=== PATIENT | female | born 1970 | race Hispanic/Latino ===

== ENCOUNTER 2024-08-09 03:24 | Inpatient (IN) | payer OTHER ==
[2024-08-09 04:13] LABS: Hematocrit 40.2 % (36.0-47.0); Hemoglobin 12.6 g/dL (12.0-16.0); Mean Corpuscular HGB CONC 31.3 g/dL (32.0-36.0); Mean Corpuscular Volume 79.9 fL (78.0-98.0); Mean Platelet Volume 9.9 fL (7.4-10.4); Platelet Count 201 10x3/uL (130-400); RBC Distribution Width 14.7 % (11.5-14.5); Red Blood Cell (RBC) Count 5.03 mill/uL (4.20-5.40)
[2024-08-09 04:39] LABS: ALT (SGPT) 42 U/L (8-55); AST (SGOT) 36 U/L (5-34); Albumin 2.5 g/dL (3.5-5.0); Alkaline Phosphatase 91 U/L (40-110); Anion Gap 20 mmol/L (10-20); BUN (Urea Nitrogen) 30 mg/dL (9.8-20.1); Bilirubin, Total 1.3 mg/dL (0.2-1.2); Calc. Creatinine Clearance 0 mL/min (70-130); Calcium 10.1 mg/dL (7.8-10.44); Carbon Dioxide 14 mmol/L (22-29); Chloride 102 mmol/L (98-107); Estimated GFR 16; Globulin 3.8 g/dL (2.4-3.5); Glucose 115 mg/dL (70-105); Potassium 3.7 mmol/L (3.5-5.1); Protein, Total 6.3 g/dL (6.0-8.3); Sodium 132 mmol/L (136-145)
[2024-08-09 04:49] LABS: Troponin I Less than 0.010 ng/mL (< 0.028)
[2024-08-09 04:51] LABS: Band 38 % (5-11); Burr Cells MODERATE= 6-15 cells HPF (0-1); Eosinophils 1 % (0-10); Large Platelets 0.9 % (0-5); Lymphocytes 2 % (21-51); Metamyelocyte 1 % (0-0); Monocytes 5 % (0-10); Neutrophil 53 % (42-75); Platelet Adequacy Comment Platelets Normal; Smudge Cells 4.7 %
[2024-08-09] MEDS ORDERED: Acetaminophen 500 MG TAB ONE (04:54)
[2024-08-09] MEDS ORDERED: Vancomycin (BATCH) 2 GM/500 ML BAG ONE (05:00)
[2024-08-09] MEDS ORDERED: Sodium Chloride 0.9% 100 ML ONE (05:00)
[2024-08-09] MEDS ORDERED: Cefepime 2 GM VIAL ONE (05:00)
[2024-08-09 06:28] LABS: Bacteria/HPF 4+ HPF (None Seen); Bilirubin Negative (Negative); Blood, Urine 1+ (Negative); CAUTI Indications for Culture Pelvic or flank pain; Clarity Extra Turbid (Clear); Glucose, Urine (Dipstick) 50 mg/dL (Negative); Ketone, Urine Trace mg/dL (Negative); Leukocyte 500 Leu/uL (Negative); Nitrite Negative (Negative); Protein, Urine (Dipstick) 100 mg/dL (Neg-Trace); Specific Gravity, Urine 1.025 (1.002-1.036); WBC/HPF Greater than 50 HPF (0-3)
[2024-08-09 06:29] LABS: Urine Culture Reflex Yes Yes
[2024-08-09] MEDS ORDERED: Sodium Bicarb 50 MEQ/50 ML Abboject 8.4% SYRINGE ONE (06:49)
[2024-08-09] MEDS ORDERED: Ipratropium/Albuterol 3 ML NEB ONE (06:49)
[2024-08-09 07:15] LABS: Actual Bicarbonate (HCO3a) 16.7 mEq/L (22-28); Analyzer IN Cardio ER; Base Excess (BEa) -10.5 mEq/L (-2.0 to +3.0); Calcium, Ionized (arterial) 1.31 mmol/L (1.12-1.30); Carboxyhemoglobin (COHb) 0.5 gm% (0.0-3.0); Hematocrit-ABG 40 % (36.0-47.0); Hemoglobin (Hb) 13.7 g/dL (12.0-16.0); O2 Tension (PaO2), arterial 72.9 mmHg (80.0-100.0); Potassium - ABG Lab 3.81 mmol/L (3.70-5.30); pH, Arterial 7.218 (7.35-7.45)
[2024-08-09 07:28] LABS: Puncture Site Right Radial artery
[2024-08-09] MEDS ORDERED: Ondansetron PF 4 MG/2 ML Vial IVP PRN (07:39)
[2024-08-09 08:06] LABS: Acetaminophen Less than 10 mcg/mL (Less than 10); Alcohol Less than 10.0 mg/dL (Less than 10); Salicylate Less than 8.0 mg/dL (Less than 8.0)
[2024-08-09 08:22] LABS: Amphetamine Not Detected (NotDetected); Barbiturates Screen Not Detected (NotDetected); Benzodiazepine Screen Not Detected (NotDetected); Cocaine Metabolite Screen Not Detected (NotDetected); Methadone Not Detected (NotDetected); Methamphetamine Not Detected (NotDetected); Opiate Screen Not Detected (NotDetected); Oxycodone Screen Not Detected (NotDetected); Phencyclidine (PCP) Not Detected (NotDetected); THC/Cannabinoid Screen Not Detected (NotDetected); Tricyclic Screen Not Detected (NotDetected)
[2024-08-09] MEDS ORDERED: Vancomycin Dose by Levels Sliding Scale (Wt > 99) FS SCH (09:15)
[2024-08-09] MEDS: Lactated Ringer's 1,000 ML IV SCH (10:09)
[2024-08-09] MEDS: Potassium Chloride 20 MEQ in Lactated Ringer's 1,000 ML IV SCH (10:09)
[2024-08-09] MEDS ORDERED: Heparin 5,000 UNITS/ML VIAL ONE (10:11)
[2024-08-09] MEDS: Heparin 5,000 UNITS/ML VIAL SC SCH (10:12)
[2024-08-09 10:31] LABS: Lactic Acid 8.18 mmol/L (0.5-2.2)
[2024-08-09] MEDS ORDERED: Iopamidol 370 76% 100 ML VIAL ONE (12:42)
[2024-08-09] MEDS: Acetaminophen 325 MG TAB PO PRN (13:00)
[2024-08-09] MEDS ORDERED: Acetaminophen 325 MG TAB ONE (13:40)
[2024-08-09 15:07] LABS: Anion Gap 20 mmol/L (10-20); BUN (Urea Nitrogen) 34 mg/dL (9.8-20.1); Calc. Creatinine Clearance 37 mL/min (70-130); Calcium 9.6 mg/dL (7.8-10.44); Carbon Dioxide 15 mmol/L (22-29); Chloride 107 mmol/L (98-107); Estimated GFR 15; Glucose 78 mg/dL (70-105); Potassium 4.4 mmol/L (3.5-5.1); Sodium 138 mmol/L (136-145)
[2024-08-09] MEDS: Albumin 25% 25 GM (100 mL) BOT IVPB SCH (16:35)
[2024-08-09] MEDS: Sodium Bicarbonate 150 MEQ in Dextrose 5% in Water 1,000 ML IV SCH (16:39)
[2024-08-09] MEDS: NOREPINEPHRINE 8 MG/250 ML-D5W 250 ML IVPB SCH (16:44)
[2024-08-09] MEDS: Sodium Bicarb 50 MEQ/50 ML Abboject 8.4% SYRINGE IVP SCH (17:10)
[2024-08-09 17:50] LABS: CK (CPK) 887 U/L (29-168); Lipase 9 U/L (8-78)
[2024-08-09] MEDS: Vasopressin In 0.9 % NaCl 40 UNIT in Premix 1 BAG IV SCH (18:15)
[2024-08-09] MEDS: Ipratropium/Albuterol 3 ML NEB NEB PRN (18:29)
[2024-08-09] MEDS: Sodium Bicarb 50 MEQ/50 ML Abboject 8.4% SYRINGE ONE (18:33)
[2024-08-09] MEDS: FLU (Fluarix Triv) TS24-25(6MOS UP)/PF 45 MCG/0.5 ML Syringe IM ONE (18:33)
[2024-08-09] MEDS: Sodium Chloride 0.9% 1,000 ML IV SCH ×2 (18:52→23:03)
[2024-08-09] MEDS: Hydrocortisone Sod Succ/PF 100 mg/2 ml Vial IVP SCH (18:54)
[2024-08-09 19:50] LABS: Creatinine, Urine 158.01 mg/dL (47-110)
[2024-08-09] MEDS: fentaNYL 50 mcg/mL 1 mL Vial SLOW IVP SCH (21:44)
[2024-08-09] MEDS: Melatonin 3 MG TAB PO SCH (21:46)
[2024-08-09] MEDS: Morphine 2 MG/ML VIAL SLOW IVP SCH (23:07)
[2024-08-09 23:46] LABS: ALT (SGPT) 39 U/L (8-55); AST (SGOT) 65 U/L (5-34); Albumin 2.9 g/dL (3.5-5.0); Alkaline Phosphatase 60 U/L (40-110); Anion Gap 28 mmol/L (10-20); BUN (Urea Nitrogen) 39 mg/dL (9.8-20.1); Bilirubin, Total 1.7 mg/dL (0.2-1.2); Calc. Creatinine Clearance 35 mL/min (70-130); Carbon Dioxide 11 mmol/L (22-29); Chloride 105 mmol/L (98-107); Estimated GFR 15; Globulin 3.1 g/dL (2.4-3.5); Glucose 158 mg/dL (70-105); Potassium 4.1 mmol/L (3.5-5.1); Sodium 140 mmol/L (136-145)
[2024-08-10] MEDS: Sodium Bicarbonate 150 MEQ in Dextrose 5% in Water 1,000 ML IV SCH (00:08)
[2024-08-10] MEDS: Hydrocortisone Sod Succ/PF 100 mg/2 ml Vial IVP SCH (01:33)
[2024-08-10 04:30] LABS: Hematocrit 36.1 % (36.0-47.0); Hemoglobin 11.1 g/dL (12.0-16.0); Mean Corpuscular HGB CONC 30.7 g/dL (32.0-36.0); Mean Corpuscular Hemoglobin 24.2 pg (27.0-31.0); Mean Corpuscular Volume 78.8 fL (78.0-98.0); Platelet Count 181 10x3/uL (130-400); RBC Distribution Width 15.4 % (11.5-14.5); Red Blood Cell (RBC) Count 4.58 mill/uL (4.20-5.40)
[2024-08-10 04:46] LABS: ALT (SGPT) 47 U/L (8-55); AST (SGOT) 79 U/L (5-34); Albumin 2.5 g/dL (3.5-5.0); Alkaline Phosphatase 61 U/L (40-110); Anion Gap 20 mmol/L (10-20); BUN (Urea Nitrogen) 38 mg/dL (9.8-20.1); Bilirubin, Total 1.8 mg/dL (0.2-1.2); CK (CPK) 545 U/L (29-168); Calc. Creatinine Clearance 40 mL/min (70-130); Calcium 8.3 mg/dL (7.8-10.44); Carbon Dioxide 21 mmol/L (22-29); Chloride 101 mmol/L (98-107); Estimated GFR 18; Globulin 3.2 g/dL (2.4-3.5); Glucose 257 mg/dL (70-105); Magnesium 1.4 mg/dL (1.6-2.6); Protein, Total 5.7 g/dL (6.0-8.3); Sodium 138 mmol/L (136-145)
[2024-08-10 04:50] LABS: Lactic Acid 6.51 mmol/L (0.5-2.2)
[2024-08-10] MEDS: Cefepime 1 GM in Sodium Chloride 0.9% 100 ML IVPB SCH ×2 (06:21→08:15)
[2024-08-10 06:59] LABS: Anisocytosis SLIGHT = 6-15 cells HPF (0-5); Band 20 % (5-11); Burr Cells SLIGHT = 2-5 cells HPF (0-1); Elliptocytes SLIGHT = 2-5 cells HPF (0-1); Large Platelets 7.3 % (0-5); Lymphocytes 6 % (21-51); Macrocytosis SLIGHT = 6-15 cells HPF (0-5); Metamyelocyte 7 % (0-0); Monocytes 31 % (0-10); Myelocyte 3 % (0-0); Neutrophil 33 % (42-75); Nucleated RBC (Manual Ct) 4 % (0); Platelet Adequacy Comment Platelets Normal; Poikilocytosis MODERATE=16-30 cells HPF (0-5); Polychromasia SLIGHT = 2-3 cells HPF (0-2); Smudge Cells 5.5 %
[2024-08-10] MEDS: Magnesium Sulfate In Water 4 GM in Premix 1 BAG IVPB SCH (07:57)
[2024-08-10 09:04] LABS: Actual Bicarbonate (HCO3a) 26.1 mEq/L (22-28); Base Excess (BEa) -0.3 mEq/L (-2.0 to +3.0); CO2 Tension 50.7 mmHg (35.0-45.0); Calcium, Ionized (arterial) 1.12 mmol/L (1.12-1.30); Carboxyhemoglobin (COHb) 0.8 gm% (0.0-3.0); Hematocrit-ABG 35 % (36.0-47.0); Hemoglobin (Hb) 11.9 g/dL (12.0-16.0); O2 Tension (PaO2), arterial 74.7 mmHg (80.0-100.0); Potassium - ABG Lab 3.63 mmol/L (3.70-5.30)
[2024-08-10 09:24] LABS: Puncture Site Right Brachial art
[2024-08-10] MEDS: Sodium Bicarbonate 150 MEQ in Sterile Water 1,000 ML IV SCH (09:43)
[2024-08-10] MEDS: Albumin 25% 25 GM (100 mL) BOT IVPB SCH ×2 (09:48→12:57)
[2024-08-10 10:21] LABS: Hematocrit 34.1 % (36.0-47.0); Hemoglobin 10.8 g/dL (12.0-16.0); Mean Corpuscular HGB CONC 31.7 g/dL (32.0-36.0); Mean Corpuscular Hemoglobin 24.8 pg (27.0-31.0); Mean Corpuscular Volume 78.2 fL (78.0-98.0); Mean Platelet Volume 10.8 fL (7.4-10.4); Platelet Count 157 10x3/uL (130-400); RBC Distribution Width 15.6 % (11.5-14.5); Red Blood Cell (RBC) Count 4.36 mill/uL (4.20-5.40)
[2024-08-10] MEDS: Clindamycin/D5W 900 MG in Premix 1 BAG IVPB SCH (11:17)
[2024-08-10 11:28] LABS: Vancomycin, Trough 13.3 ug/mL
[2024-08-10 11:42] LABS: Band 19 % (5-11); Burr Cells MODERATE= 6-15 cells HPF (0-1); Large Platelets 4.6 % (0-5); Lymphocytes 5 % (21-51); Metamyelocyte 2 % (0-0); Monocytes 26 % (0-10); Neutrophil 49 % (42-75); Nucleated RBC (Manual Ct) 2 % (0); Platelet Adequacy Comment Platelets Normal; Poikilocytosis SLIGHT = 6-15 cells HPF (0-5)
[2024-08-10] MEDS: Fentanyl CADD 100 ML ONE (11:45)
[2024-08-10] MEDS: Vecuronium 10 MG VIAL ONE (11:47)
[2024-08-10] MEDS: Midazolam HCl 2 mg/2 ml Vial SLOW IVP SCH ×3 (11:47→11:50)
[2024-08-10] MEDS: Propofol 1,000 MG/100 ML VIAL IV ONE (12:10)
[2024-08-10] MEDS ORDERED: Morphine 2 MG/ML VIAL SLOW IVP PRN (12:30)
[2024-08-10] MEDS ORDERED: Fentanyl BOLUS 250 ML IVPB PRN (12:30)
[2024-08-10] MEDS ORDERED: Propofol BOLUS 1,000 MG/100 ML VIAL IV PRN (12:30)
[2024-08-10] MEDS: Vecuronium 10 MG VIAL IV SCH ×2 (12:59→14:15)
[2024-08-10] MEDS: Vancomycin 1 GM in Premix 1 BAG IVPB SCH (13:16)
[2024-08-10 13:23] LABS: Actual Bicarbonate (HCO3a) 24.4 mEq/L (22-28); CO2 Tension 37.7 mmHg (35.0-45.0); O2 Tension (PaO2), arterial 97.2 mmHg (80.0-100.0); pH, Arterial 7.429 (7.35-7.45)
[2024-08-10 13:24] LABS: Base Excess (BEa) 0.2 mEq/L (-2.0 to +3.0); Calcium, Ionized (arterial) 1.09 mmol/L (1.12-1.30); Carboxyhemoglobin (COHb) 0.6 gm% (0.0-3.0); Hematocrit-ABG 31 % (36.0-47.0); Hemoglobin (Hb) 10.7 g/dL (12.0-16.0); Potassium - ABG Lab 3.61 mmol/L (3.70-5.30)
[2024-08-10 13:25] LABS: ALV-art Gradient 140.875 mmHg (0-20); Puncture Site Right Brachial art
[2024-08-10] MEDS: Midazolam HCl 2 mg/2 ml Vial ONE (13:25)
[2024-08-10] MEDS: Lorazepam 2 MG/ML VIAL SLOW IVP PRN (13:46)
[2024-08-10] MEDS ORDERED: Magnevist 469MG/ML 20 ML VIAL ONE (14:37)
[2024-08-10 21:05] LABS: Hemoglobin A1c 5.9 % (4.0-6.0)
[2024-08-10] MEDS: Propofol 1,000 MG/100 ML VIAL IV PRN (23:07)
[2024-08-11 06:53] LABS: Hematocrit 28.4 % (36.0-47.0); Hemoglobin 9.4 g/dL (12.0-16.0); Mean Corpuscular HGB CONC 33.1 g/dL (32.0-36.0); Mean Corpuscular Hemoglobin 24.9 pg (27.0-31.0); Mean Corpuscular Volume 75.3 fL (78.0-98.0); Mean Platelet Volume 11.2 fL (7.4-10.4); Platelet Count 137 10x3/uL (130-400); RBC Distribution Width 15.3 % (11.5-14.5); Red Blood Cell (RBC) Count 3.77 mill/uL (4.20-5.40)
[2024-08-11 07:07] LABS: ALT (SGPT) 35 U/L (8-55); AST (SGOT) 71 U/L (5-34); Albumin 3.4 g/dL (3.5-5.0); Alkaline Phosphatase 85 U/L (40-110); Anion Gap 18 mmol/L (10-20); BUN (Urea Nitrogen) 51 mg/dL (9.8-20.1); Bilirubin, Total 2.9 mg/dL (0.2-1.2); Calc. Creatinine Clearance 54 mL/min (70-130); Calcium 9.5 mg/dL (7.8-10.44); Carbon Dioxide 28 mmol/L (22-29); Chloride 94 mmol/L (98-107); Estimated GFR 25; Globulin 2.8 g/dL (2.4-3.5); Glucose 153 mg/dL (70-105); Potassium 3.5 mmol/L (3.5-5.1); Protein, Total 6.2 g/dL (6.0-8.3); Sodium 136 mmol/L (136-145)
[2024-08-11 07:27] LABS: Band 13 % (5-11); Large Platelets 5.8 % (0-5); Lymphocytes 7 % (21-51); Monocytes 15 % (0-10); Neutrophil 64 % (42-75); Nucleated RBC (Manual Ct) 1 % (0); Platelet Adequacy Comment Platelets Normal; Polychromasia SLIGHT = 2-3 cells HPF (0-2); Reactive Lymphocytes 1 % (0-10)
[2024-08-11 07:35] LABS: Magnesium 2.2 mg/dL (1.6-2.6)
[2024-08-11] MEDS: Famotidine/PF 20 mg/2ml Vial SLOW IVP SCH (08:38)
[2024-08-11] MEDS ORDERED: Famotidine 20 MG TAB PO SCH (09:00)
[2024-08-11] MEDS: Lactated Ringer's 1,000 ML IV SCH (09:49)
[2024-08-11] MEDS ORDERED: Midazolam HCl 2 mg/2 ml Vial ONE ×2 (10:26→10:27)
[2024-08-11] MEDS ORDERED: PROPOFOL 20 ML ONE (10:26)
[2024-08-11] MEDS ORDERED: fentaNYL PF 100 MCG/2 ML SYRINGE ONE (10:26)
[2024-08-11] MEDS ORDERED: Rocuronium Bromide 10 MG/ML (10ML VIAL) ONE (10:26)
[2024-08-11] MEDS ORDERED: Albuterol HFA (OR) 200 PUFF INH ONE (11:39)
[2024-08-11] MEDS: Fentanyl CADD 100 ML IV SCH (12:27)
[2024-08-11 13:11] LABS: Vancomycin, Trough 14.8 ug/mL
[2024-08-12 05:34] LABS: Vancomycin, Random 10.6 ug/mL (See Comment)
[2024-08-12 05:40] LABS: ALT (SGPT) 33 U/L (8-55); AST (SGOT) 63 U/L (5-34); Albumin 2.6 g/dL (3.5-5.0); Alkaline Phosphatase 133 U/L (40-110); Anion Gap 16 mmol/L (10-20); BUN (Urea Nitrogen) 60 mg/dL (9.8-20.1); Bilirubin, Total 3.1 mg/dL (0.2-1.2); CK (CPK) 173 U/L (29-168); Calc. Creatinine Clearance 58 mL/min (70-130); Calcium 9.3 mg/dL (7.8-10.44); Carbon Dioxide 31 mmol/L (22-29); Chloride 95 mmol/L (98-107); Estimated GFR 27; Globulin 3.4 g/dL (2.4-3.5); Glucose 146 mg/dL (70-105); Potassium 3.6 mmol/L (3.5-5.1); Sodium 138 mmol/L (136-145)
[2024-08-12 06:11] LABS: Hemoglobin 8.7 g/dL (12.0-16.0); Mean Corpuscular HGB CONC 32.2 g/dL (32.0-36.0); Mean Corpuscular Hemoglobin 24.8 pg (27.0-31.0); Mean Corpuscular Volume 76.9 fL (78.0-98.0); Mean Platelet Volume 11.7 fL (7.4-10.4); Platelet Count 144 10x3/uL (130-400); RBC Distribution Width 15.6 % (11.5-14.5); Red Blood Cell (RBC) Count 3.51 mill/uL (4.20-5.40)
[2024-08-12] MEDS: NS 0.9% w/ 20 MEQ KCL 1,000 ML/1,000 ML BAG IV SCH (08:09)
[2024-08-12] MEDS: Vancomycin 1 GM in Premix 1 BAG IVPB SCH (08:09)
[2024-08-12] MEDS: Albumin 25% 25 GM (100 mL) BOT IVPB SCH ×2 (08:09→11:01)
[2024-08-12 08:48] LABS: Band 8 % (5-11); Lymphocytes 1 % (21-51); Monocytes 2 % (0-10); Neutrophil 89 % (42-75); Platelet Adequacy Comment Platelets Normal; RBC Morphology Within Normal Limits
[2024-08-13 04:47] LABS: Hematocrit 26.5 % (36.0-47.0); Hemoglobin 8.4 g/dL (12.0-16.0); Mean Corpuscular HGB CONC 31.7 g/dL (32.0-36.0); Mean Corpuscular Hemoglobin 24.6 pg (27.0-31.0); Mean Corpuscular Volume 77.7 fL (78.0-98.0); Mean Platelet Volume 11.6 fL (7.4-10.4); Platelet Count 165 10x3/uL (130-400); RBC Distribution Width 15.9 % (11.5-14.5); Red Blood Cell (RBC) Count 3.41 mill/uL (4.20-5.40)
[2024-08-13 05:16] LABS: Vancomycin, Random 18.8 ug/mL (See Comment)
[2024-08-13 05:26] LABS: Band 5 % (5-11); Hypochromia SLIGHT = 6-15 cells HPF (0-5); Large Platelets 7.8 % (0-5); Lymphocytes 6 % (21-51); Macrocytosis SLIGHT = 6-15 cells HPF (0-5); Monocytes 1 % (0-10); Neutrophil 87 % (42-75); Nucleated RBC (Manual Ct) 4 % (0); Platelet Adequacy Comment Platelets Normal; Polychromasia SLIGHT = 2-3 cells HPF (0-2)
[2024-08-13 06:26] LABS: ALT (SGPT) 38 U/L (8-55); AST (SGOT) 87 U/L (5-34); Albumin 3.1 g/dL (3.5-5.0); Alkaline Phosphatase 144 U/L (40-110); Anion Gap 20 mmol/L (10-20); BUN (Urea Nitrogen) 81 mg/dL (9.8-20.1); Bilirubin, Total 4.5 mg/dL (0.2-1.2); Calc. Creatinine Clearance 38 mL/min (70-130); Calcium 9.2 mg/dL (7.8-10.44); Carbon Dioxide 25 mmol/L (22-29); Chloride 99 mmol/L (98-107); Estimated GFR 15; Globulin 3.5 g/dL (2.4-3.5); Glucose 116 mg/dL (70-105); Potassium 4.7 mmol/L (3.5-5.1); Protein, Total 6.6 g/dL (6.0-8.3); Sodium 139 mmol/L (136-145)
[2024-08-13] MEDS: Vancomycin 1 GM in Premix 1 BAG IVPB SCH (09:47)
[2024-08-13 10:56] LABS: Creatinine, Urine 120.09 mg/dL (47-110); Sodium, Urine Less than 20 mmol/L (Not Available)
[2024-08-13] MEDS ORDERED: Vancomycin Dose by Levels Sliding Scale (Wt > 99) FS SCH (11:30)
[2024-08-13] MEDS: Albumin 25% 25 GM (100 mL) BOT IVPB SCH (12:40)
[2024-08-13] MEDS: Sodium Chloride 0.9% 1,000 ML IV SCH (17:15)
[2024-08-13] MEDS ORDERED: Vancomycin HCl 500 MG in Sodium Chloride 0.9% 100 ML IVPB SCH (20:00)
[2024-08-13] MEDS: Hydrocortisone Sod Succ/PF 100 mg/2 ml Vial IVP SCH (22:46)
[2024-08-14 04:24] LABS: Hematocrit 25.3 % (36.0-47.0); Hemoglobin 8.1 g/dL (12.0-16.0); Mean Corpuscular Hemoglobin 24.8 pg (27.0-31.0); Mean Corpuscular Volume 77.6 fL (78.0-98.0); Mean Platelet Volume 11.8 fL (7.4-10.4); Platelet Count 168 10x3/uL (130-400); RBC Distribution Width 15.9 % (11.5-14.5); Red Blood Cell (RBC) Count 3.26 mill/uL (4.20-5.40)
[2024-08-14 04:50] LABS: CRP,High Sensitivity (Inhouse) 15.55 mg/dL (< or = 0.5)
[2024-08-14 04:51] LABS: Phosphorus 7.1 mg/dL (2.3-4.7)
[2024-08-14 04:53] LABS: ALT (SGPT) 39 U/L (8-55); AST (SGOT) 70 U/L (5-34); Albumin 3.6 g/dL (3.5-5.0); Alkaline Phosphatase 144 U/L (40-110); Anion Gap 20 mmol/L (10-20); BUN (Urea Nitrogen) 110 mg/dL (9.8-20.1); Bilirubin, Total 5.5 mg/dL (0.2-1.2); Calc. Creatinine Clearance 35 mL/min (70-130); Calcium 8.5 mg/dL (7.8-10.44); Carbon Dioxide 21 mmol/L (22-29); Chloride 102 mmol/L (98-107); Estimated GFR 14; Globulin 3.1 g/dL (2.4-3.5); Glucose 140 mg/dL (70-105); Magnesium 2.8 mg/dL (1.6-2.6); Protein, Total 6.7 g/dL (6.0-8.3); Sodium 138 mmol/L (136-145)
[2024-08-14 05:09] LABS: Anisocytosis SLIGHT = 6-15 cells HPF (0-5); Band 2 % (5-11); Dohle Bodies SLIGHT; Hypochromia SLIGHT = 6-15 cells HPF (0-5); Lymphocytes 7 % (21-51); Macrocytosis SLIGHT = 6-15 cells HPF (0-5); Metamyelocyte 3 % (0-0); Monocytes 3 % (0-10); Myelocyte 2 % (0-0); Neutrophil 83 % (42-75); Nucleated RBC (Manual Ct) 5 % (0); Ovalocytes SLIGHT = 2-5 cells HPF (0-1); Platelet Adequacy Comment Platelets Normal; Polychromasia SLIGHT = 2-3 cells HPF (0-2); Target Cells SLIGHT = 2-5 cells HPF (0-1); Tear Drops SLIGHT = 2-5 cells HPF (0-1); Toxic Granulation SLIGHT
[2024-08-14] MEDS: Sodium Bicarbonate 75 MEQ in Sodium Chloride 0.45% 1,000 ML IV SCH (09:59)
[2024-08-14 10:25] LABS: Vancomycin, Random 25.1 ug/mL (See Comment)
[2024-08-14] MEDS: Glycopyrrolate 0.2 MG/ML 5 ML SYRINGE SLOW IVP SCH (18:24)
[2024-08-14 18:52] LABS: ALT (SGPT) 46 U/L (8-55); AST (SGOT) 79 U/L (5-34); Albumin 3.9 g/dL (3.5-5.0); Alkaline Phosphatase 168 U/L (40-110); Anion Gap 20 mmol/L (10-20); BUN (Urea Nitrogen) 119 mg/dL (9.8-20.1); Bilirubin, Total 5.5 mg/dL (0.2-1.2); Calc. Creatinine Clearance 38 mL/min (70-130); Calcium 8.3 mg/dL (7.8-10.44); Carbon Dioxide 20 mmol/L (22-29); Chloride 103 mmol/L (98-107); Estimated GFR 15; Globulin 3.7 g/dL (2.4-3.5); Glucose 120 mg/dL (70-105); Potassium 5.1 mmol/L (3.5-5.1); Protein, Total 7.6 g/dL (6.0-8.3); Sodium 138 mmol/L (136-145)
[2024-08-14] MEDS: Ipratropium/Albuterol 3 ML NEB NEB SCH (21:33)
[2024-08-15] MEDS: Glycopyrrolate 0.4 MG/ 2 ML VIAL SLOW IVP SCH (00:24)
[2024-08-15 04:33] LABS: Hematocrit 26.8 % (36.0-47.0); Hemoglobin 8.5 g/dL (12.0-16.0); Mean Corpuscular HGB CONC 31.7 g/dL (32.0-36.0); Mean Corpuscular Hemoglobin 25.1 pg (27.0-31.0); Mean Corpuscular Volume 79.1 fL (78.0-98.0); Mean Platelet Volume 11.1 fL (7.4-10.4); Platelet Count 199 10x3/uL (130-400); Red Blood Cell (RBC) Count 3.39 mill/uL (4.20-5.40)
[2024-08-15 04:45] LABS: ALT (SGPT) 46 U/L (8-55); AST (SGOT) 83 U/L (5-34); Albumin 3.6 g/dL (3.5-5.0); Alkaline Phosphatase 137 U/L (40-110); Anion Gap 19 mmol/L (10-20); BUN (Urea Nitrogen) 125 mg/dL (9.8-20.1); Bilirubin, Total 4.5 mg/dL (0.2-1.2); Calc. Creatinine Clearance 40 mL/min (70-130); Carbon Dioxide 25 mmol/L (22-29); Chloride 101 mmol/L (98-107); Estimated GFR 16; Globulin 3.6 g/dL (2.4-3.5); Glucose 111 mg/dL (70-105); Potassium 4.8 mmol/L (3.5-5.1); Protein, Total 7.2 g/dL (6.0-8.3); Sodium 140 mmol/L (136-145)
[2024-08-15 04:46] LABS: CK (CPK) 694 U/L (29-168); Iron 43 ug/dL (50-170); Iron Binding Capacity, Total 173 mcg/dL (265-497)
[2024-08-15 05:44] LABS: Anisocytosis SLIGHT = 6-15 cells HPF (0-5); Band 7 % (5-11); Hypochromia SLIGHT = 6-15 cells HPF (0-5); Lymphocytes 3 % (21-51); Metamyelocyte 1 % (0-0); Microcytosis SLIGHT = 6-15 cells HPF (0-5); Monocytes 1 % (0-10); Myelocyte 2 % (0-0); Neutrophil 85 % (42-75); Nucleated RBC (Manual Ct) 2 % (0); Ovalocytes SLIGHT = 2-5 cells HPF (0-1); Platelet Adequacy Comment Platelets Normal; Polychromasia SLIGHT = 2-3 cells HPF (0-2); Reactive Lymphocytes 1 % (0-10); Target Cells SLIGHT = 2-5 cells HPF (0-1); Toxic Granulation SLIGHT
[2024-08-15] MEDS: Morphine 2 MG/ML VIAL SLOW IVP PRN (09:05)
[2024-08-15] MEDS ORDERED: DC Sedation Protocol FS SCH (09:23)
[2024-08-15] MEDS: cefTRIAXone\\ROCEPHIN 2 GM in Sodium Chloride 0.9% 100 ML IVPB SCH (13:36)
[2024-08-15 13:55] LABS: Immunoglob - G (Total IgG) 1715 mg/dL (552-1631); Immunoglob - M (Total IgM) 72 mg/dL (33-293)
[2024-08-15 21:56] LABS: Immunoglob - A (Total IgA) 514 mg/dL (65-421)
[2024-08-16 06:24] LABS: #Basophils Less than 0.03 10x3/uL (0.0-0.2); %Basophils 0.1 % (0.0-1.0); %Eosinophils 0.3 % (0.0-10.0); %Lymphocytes 3.1 % (21.0-51.0); %Monocytes 0.9 % (0.0-10.0); %Neutrophils 91.1 % (42.0-75.0); Hematocrit 26.8 % (36.0-47.0); Hemoglobin 8.5 g/dL (12.0-16.0); Mean Corpuscular HGB CONC 31.7 g/dL (32.0-36.0); Mean Corpuscular Hemoglobin 25.3 pg (27.0-31.0); Mean Corpuscular Volume 79.8 fL (78.0-98.0); Mean Platelet Volume 10.4 fL (7.4-10.4); Platelet Count 208 10x3/uL (130-400); RBC Distribution Width 15.9 % (11.5-14.5); Red Blood Cell (RBC) Count 3.36 mill/uL (4.20-5.40)
[2024-08-16 06:37] LABS: ALT (SGPT) 45 U/L (8-55); AST (SGOT) 70 U/L (5-34); Albumin 2.9 g/dL (3.5-5.0); Alkaline Phosphatase 141 U/L (40-110); Anion Gap 16 mmol/L (10-20); BUN (Urea Nitrogen) 94 mg/dL (9.8-20.1); Bilirubin, Total 3.1 mg/dL (0.2-1.2); Calc. Creatinine Clearance 79 mL/min (70-130); Calcium 7.6 mg/dL (7.8-10.44); Carbon Dioxide 32 mmol/L (22-29); Chloride 102 mmol/L (98-107); Estimated GFR 36; Globulin 3.5 g/dL (2.4-3.5); Glucose 108 mg/dL (70-105); Potassium 3.9 mmol/L (3.5-5.1); Protein, Total 6.4 g/dL (6.0-8.3); Sodium 146 mmol/L (136-145)
[2024-08-16 06:44] LABS: INR-International Normal Ratio 1.4
[2024-08-16 06:46] LABS: PTT 115.4 sec (22.9-36.1)
[2024-08-16 06:48] VITALS: BMI 48.6
[2024-08-16] MEDS: Hydrocortisone Sod Succ/PF 100 mg/2 ml Vial IVP SCH (09:35)
[2024-08-16] MEDS: Sodium Chloride 0.9% 1,000 ML IV SCH (10:28)
[2024-08-16] MEDS: Albumin 25% 25 GM (100 mL) BOT IVPB SCH (12:17)
[2024-08-16] MEDS: Senokot S 8.6-50 MG TAB PO SCH (21:56)
[2024-08-16] MEDS: Multivit, Therapeutic 1 TAB PO SCH (21:56)
[2024-08-17 05:02] LABS: #Basophils Less than 0.03 10x3/uL (0.0-0.2); %Basophils 0.1 % (0.0-1.0); %Monocytes 1.5 % (0.0-10.0); %Neutrophils 88.7 % (42.0-75.0); Hematocrit 25.3 % (36.0-47.0); Hemoglobin 7.7 g/dL (12.0-16.0); Mean Corpuscular HGB CONC 30.4 g/dL (32.0-36.0); Mean Corpuscular Hemoglobin 25.2 pg (27.0-31.0); Mean Platelet Volume 10.7 fL (7.4-10.4); Platelet Count 195 10x3/uL (130-400); RBC Distribution Width 15.9 % (11.5-14.5); Red Blood Cell (RBC) Count 3.05 mill/uL (4.20-5.40)
[2024-08-17 05:16] LABS: ALT (SGPT) 31 U/L (8-55); AST (SGOT) 41 U/L (5-34); Albumin 3.4 g/dL (3.5-5.0); Alkaline Phosphatase 113 U/L (40-110); Anion Gap 12 mmol/L (10-20); BUN (Urea Nitrogen) 62 mg/dL (9.8-20.1); Bilirubin, Total 2.6 mg/dL (0.2-1.2); Calc. Creatinine Clearance 135 mL/min (70-130); Calcium 8.4 mg/dL (7.8-10.44); Carbon Dioxide 34 mmol/L (22-29); Chloride 108 mmol/L (98-107); Estimated GFR 68; Globulin 3.4 g/dL (2.4-3.5); Glucose 123 mg/dL (70-105); Potassium 3.7 mmol/L (3.5-5.1); Protein, Total 6.8 g/dL (6.0-8.3); Sodium 150 mmol/L (136-145)
[2024-08-17] MEDS: D5 1/4 NS 1,000 ML IV SCH (08:26)
[2024-08-17] MEDS: Famotidine 20 MG TAB PO SCH (08:28)
[2024-08-17] MEDS: Nystatin Powder 15 GM BOT TOP SCH (11:51)
[2024-08-17] MEDS: Sodium Ferric Gluconate 250 MG in Sodium Chloride 0.9% 250 ML 250 ML IVPB SCH (12:28)
[2024-08-17] MEDS: EPOETIN ALFA-EPBX (ESRD) 10,000 UNITS/ML VIAL SC SCH (12:30)
[2024-08-17 16:16] LABS: Anion Gap 13 mmol/L (10-20); BUN (Urea Nitrogen) 52 mg/dL (9.8-20.1); Calc. Creatinine Clearance 158 mL/min (70-130); Calcium 8.8 mg/dL (7.8-10.44); Carbon Dioxide 31 mmol/L (22-29); Chloride 107 mmol/L (98-107); Estimated GFR 83; Glucose 178 mg/dL (70-105); Potassium 3.8 mmol/L (3.5-5.1); Sodium 147 mmol/L (136-145)
[2024-08-17] MEDS: Metolazone 2.5 MG TAB PO SCH (17:32)
[2024-08-17] MEDS: traMADol HCl 50 MG TAB PO PRN (23:06)
[2024-08-18 04:36] LABS: #Basophils 0.03 10x3/uL (0.0-0.2); %Basophils 0.2 % (0.0-1.0); %Eosinophils 1.6 % (0.0-10.0); %Lymphocytes 8.4 % (21.0-51.0); %Monocytes 2.9 % (0.0-10.0); %Neutrophils 82.3 % (42.0-75.0); Hematocrit 25.6 % (36.0-47.0); Hemoglobin 7.7 g/dL (12.0-16.0); Mean Corpuscular HGB CONC 30.1 g/dL (32.0-36.0); Mean Corpuscular Hemoglobin 25.7 pg (27.0-31.0); Mean Corpuscular Volume 85.3 fL (78.0-98.0); Mean Platelet Volume 10.9 fL (7.4-10.4); Platelet Count 224 10x3/uL (130-400); RBC Distribution Width 16.7 % (11.5-14.5)
[2024-08-18 04:41] LABS: ALT (SGPT) 28 U/L (8-55); AST (SGOT) 33 U/L (5-34); Albumin 3.2 g/dL (3.5-5.0); Alkaline Phosphatase 124 U/L (40-110); Anion Gap 10 mmol/L (10-20); BUN (Urea Nitrogen) 43 mg/dL (9.8-20.1); Bilirubin, Total 1.7 mg/dL (0.2-1.2); Calc. Creatinine Clearance 170 mL/min (70-130); Calcium 9.3 mg/dL (7.8-10.44); Carbon Dioxide 33 mmol/L (22-29); Chloride 107 mmol/L (98-107); Estimated GFR 91; Globulin 3.7 g/dL (2.4-3.5); Glucose 140 mg/dL (70-105); Potassium 3.4 mmol/L (3.5-5.1); Protein, Total 6.9 g/dL (6.0-8.3); Sodium 147 mmol/L (136-145)
[2024-08-18] MEDS: Albumin 25% 25 GM (100 mL) BOT IVPB SCH ×2 (07:34→13:09)
[2024-08-18] MEDS: Metolazone 2.5 MG TAB PO SCH (08:28)
[2024-08-18] MEDS: Spironolactone 100 MG TAB PO SCH (08:29)
[2024-08-18] MEDS: AcetaZOLAMIDE 250 MG TAB PO SCH (09:02)
[2024-08-18] MEDS: Potassium Chloride 20 MEQ TAB PO SCH (11:51)
[2024-08-18] MEDS: Morphine 4 MG/ML VIAL SLOW IVP SCH (13:05)
[2024-08-18] MEDS: Morphine 4 MG/ML VIAL ONE (13:16)
[2024-08-18 13:55] LABS: Analyzer IN Cardio OR; Base Excess (BEa) 1.3 mEq/L (-2.0 to +3.0); CO2 Tension 26.1 mmHg (35.0-45.0); Carboxyhemoglobin (COHb) 0.1 gm% (0.0-3.0); Hematocrit-ABG 25 % (36.0-47.0); Hemoglobin (Hb) 8.6 g/dL (12.0-16.0); O2 Tension (PaO2), arterial 182.7 mmHg (80.0-100.0); Potassium - ABG Lab 3.38 mmol/L (3.70-5.30); Puncture Site Arterial Line; pH, Arterial 7.563 (7.35-7.45)
[2024-08-18] MEDS: NIFEdipine XL 30 MG ER.TAB PO SCH (14:27)
[2024-08-18] MEDS: Labetalol HCl 100 MG/20 ML VIAL SLOW IVP PRN (23:17)
[2024-08-19 04:16] LABS: #Basophils 0.03 10x3/uL (0.0-0.2); %Basophils 0.2 % (0.0-1.0); %Eosinophils 1.8 % (0.0-10.0); %Lymphocytes 6.8 % (21.0-51.0); %Monocytes 2.9 % (0.0-10.0); %Neutrophils 83.5 % (42.0-75.0); Hematocrit 27.6 % (36.0-47.0); Mean Corpuscular Hemoglobin 25.6 pg (27.0-31.0); Mean Corpuscular Volume 88.2 fL (78.0-98.0); Mean Platelet Volume 10.8 fL (7.4-10.4); Platelet Count 234 10x3/uL (130-400); RBC Distribution Width 17.2 % (11.5-14.5); Red Blood Cell (RBC) Count 3.13 mill/uL (4.20-5.40)
[2024-08-19 04:21] LABS: ALT (SGPT) 32 U/L (8-55); AST (SGOT) 36 U/L (5-34); Albumin 4.4 g/dL (3.5-5.0); Alkaline Phosphatase 136 U/L (40-110); Anion Gap 12 mmol/L (10-20); BUN (Urea Nitrogen) 32 mg/dL (9.8-20.1); Bilirubin, Total 1.6 mg/dL (0.2-1.2); Calc. Creatinine Clearance 155 mL/min (70-130); Calcium 10.4 mg/dL (7.8-10.44); Carbon Dioxide 29 mmol/L (22-29); Chloride 106 mmol/L (98-107); Estimated GFR 82; Globulin 3.7 g/dL (2.4-3.5); Glucose 136 mg/dL (70-105); Potassium 3.8 mmol/L (3.5-5.1); Protein, Total 8.1 g/dL (6.0-8.3); Sodium 143 mmol/L (136-145)
[2024-08-19] MEDS ORDERED: Dexmedetomidine In 0.9 % NaCl 100 ML IVPB SCH (06:45)
[2024-08-19] MEDS ORDERED: NIFEdipine XL 30 MG ER.TAB PO SCH (09:00)
[2024-08-19] MEDS: NIFEdipine XL 60 MG ER.TAB PO SCH (10:23)
[2024-08-19] MEDS: Torsemide 20 MG TAB PO SCH (10:24)
[2024-08-19] MEDS: Sterile Water 10 ML VIAL IVP SCH (10:24)
[2024-08-19] MEDS: acetaZOLAMIDE Sodium 500 mg Vial IVP SCH (10:46)
[2024-08-19 12:25] LABS: ANA Symphony (Qualitative) Equivocal: See Note (Negative); ANA Symphony (Quantitative) 0.9 Ratio (< 0.7 Negative); dsDNA IgG Antibody 1.5 IU/mL (<10 Negative)
[2024-08-20 04:41] LABS: #Basophils 0.04 10x3/uL (0.0-0.2); %Basophils 0.3 % (0.0-1.0); %Eosinophils 1.7 % (0.0-10.0); %Lymphocytes 9.6 % (21.0-51.0); %Monocytes 3.7 % (0.0-10.0); %Neutrophils 81.8 % (42.0-75.0); Hematocrit 27.1 % (36.0-47.0); Mean Corpuscular HGB CONC 29.5 g/dL (32.0-36.0); Mean Corpuscular Hemoglobin 26.1 pg (27.0-31.0); Mean Corpuscular Volume 88.6 fL (78.0-98.0); Mean Platelet Volume 10.5 fL (7.4-10.4); Platelet Count 266 10x3/uL (130-400); RBC Distribution Width 17.1 % (11.5-14.5); Red Blood Cell (RBC) Count 3.06 mill/uL (4.20-5.40)
[2024-08-20 04:58] LABS: ALT (SGPT) 36 U/L (8-55); AST (SGOT) 44 U/L (5-34); Albumin 3.9 g/dL (3.5-5.0); Alkaline Phosphatase 138 U/L (40-110); Anion Gap 10 mmol/L (10-20); BUN (Urea Nitrogen) 31 mg/dL (9.8-20.1); Bilirubin, Total 1.2 mg/dL (0.2-1.2); Calc. Creatinine Clearance 165 mL/min (70-130); Calcium 10.3 mg/dL (7.8-10.44); Carbon Dioxide 29 mmol/L (22-29); Chloride 107 mmol/L (98-107); Estimated GFR 89; Globulin 3.6 g/dL (2.4-3.5); Glucose 105 mg/dL (70-105); Potassium 3.3 mmol/L (3.5-5.1); Protein, Total 7.5 g/dL (6.0-8.3); Sodium 143 mmol/L (136-145)
[2024-08-20] MEDS: Potassium Chloride 20 MEQ TAB PO SCH (08:31)
[2024-08-20] MEDS: Morphine 2 MG/ML VIAL SLOW IVP SCH (12:35)
[2024-08-21 07:06] LABS: #Basophils 0.05 10x3/uL (0.0-0.2); %Basophils 0.3 % (0.0-1.0); %Eosinophils 1.7 % (0.0-10.0); %Lymphocytes 10.3 % (21.0-51.0); %Neutrophils 81.8 % (42.0-75.0); Hematocrit 33.5 % (36.0-47.0); Hemoglobin 9.8 g/dL (12.0-16.0); Mean Corpuscular HGB CONC 29.3 g/dL (32.0-36.0); Mean Corpuscular Hemoglobin 25.7 pg (27.0-31.0); Mean Corpuscular Volume 87.9 fL (78.0-98.0); Mean Platelet Volume 10.5 fL (7.4-10.4); Platelet Count 311 10x3/uL (130-400); Red Blood Cell (RBC) Count 3.81 mill/uL (4.20-5.40)
[2024-08-21 07:18] LABS: ALT (SGPT) 42 U/L (8-55); AST (SGOT) 35 U/L (5-34); Albumin 3.7 g/dL (3.5-5.0); Alkaline Phosphatase 133 U/L (40-110); Anion Gap 11 mmol/L (10-20); BUN (Urea Nitrogen) 37 mg/dL (9.8-20.1); Bilirubin, Total 0.9 mg/dL (0.2-1.2); Calc. Creatinine Clearance 159 mL/min (70-130); Carbon Dioxide 28 mmol/L (22-29); Chloride 108 mmol/L (98-107); Estimated GFR 102; Globulin 3.9 g/dL (2.4-3.5); Glucose 115 mg/dL (70-105); Magnesium 1.4 mg/dL (1.6-2.6); Potassium 3.7 mmol/L (3.5-5.1); Protein, Total 7.6 g/dL (6.0-8.3); Sodium 143 mmol/L (136-145)
[2024-08-21] MEDS: Magnesium Sulfate In Water 4 GM in Premix 1 BAG IVPB SCH ×2 (08:30→08:42)
[2024-08-22 02:56] LABS: #Basophils 0.06 10x3/uL (0.0-0.2); %Basophils 0.4 % (0.0-1.0); %Eosinophils 1.3 % (0.0-10.0); %Lymphocytes 9.2 % (21.0-51.0); %Monocytes 3.3 % (0.0-10.0); %Neutrophils 84.4 % (42.0-75.0); Hematocrit 31.2 % (36.0-47.0); Hemoglobin 9.4 g/dL (12.0-16.0); Mean Corpuscular HGB CONC 30.1 g/dL (32.0-36.0); Mean Corpuscular Volume 86.4 fL (78.0-98.0); Mean Platelet Volume 10.2 fL (7.4-10.4); Platelet Count 349 10x3/uL (130-400); RBC Distribution Width 18.1 % (11.5-14.5); Red Blood Cell (RBC) Count 3.61 mill/uL (4.20-5.40)
[2024-08-22 06:29] LABS: ALT (SGPT) 35 U/L (8-55); AST (SGOT) 28 U/L (5-34); Albumin 3.5 g/dL (3.5-5.0); Alkaline Phosphatase 134 U/L (40-110); Anion Gap 14 mmol/L (10-20); BUN (Urea Nitrogen) 41 mg/dL (9.8-20.1); Bilirubin, Total 0.9 mg/dL (0.2-1.2); Calc. Creatinine Clearance 135 mL/min (70-130); Calcium 11.1 mg/dL (7.8-10.44); Carbon Dioxide 25 mmol/L (22-29); Chloride 107 mmol/L (98-107); Estimated GFR 85; Globulin 4.1 g/dL (2.4-3.5); Glucose 123 mg/dL (70-105); Potassium 3.7 mmol/L (3.5-5.1); Protein, Total 7.6 g/dL (6.0-8.3); Sodium 142 mmol/L (136-145)
[2024-08-22] MEDS: Morphine 2 MG/ML VIAL SLOW IVP PRN (10:32)
[2024-08-23 04:16] LABS: #Basophils 0.04 10x3/uL (0.0-0.2); %Basophils 0.3 % (0.0-1.0); %Eosinophils 1.1 % (0.0-10.0); %Lymphocytes 13.1 % (21.0-51.0); %Monocytes 4.6 % (0.0-10.0); %Neutrophils 78.2 % (42.0-75.0); Hematocrit 28.9 % (36.0-47.0); Mean Corpuscular HGB CONC 31.1 g/dL (32.0-36.0); Mean Corpuscular Hemoglobin 26.3 pg (27.0-31.0); Mean Corpuscular Volume 84.5 fL (78.0-98.0); Mean Platelet Volume 10.3 fL (7.4-10.4); Platelet Count 347 10x3/uL (130-400); RBC Distribution Width 18.5 % (11.5-14.5); Red Blood Cell (RBC) Count 3.42 mill/uL (4.20-5.40)
[2024-08-23 04:40] LABS: ALT (SGPT) 39 U/L (8-55); AST (SGOT) 36 U/L (5-34); Albumin 3.4 g/dL (3.5-5.0); Alkaline Phosphatase 141 U/L (40-110); Anion Gap 13 mmol/L (10-20); BUN (Urea Nitrogen) 39 mg/dL (9.8-20.1); Bilirubin, Total 0.8 mg/dL (0.2-1.2); Calc. Creatinine Clearance 135 mL/min (70-130); Carbon Dioxide 26 mmol/L (22-29); Chloride 103 mmol/L (98-107); Estimated GFR 85; Globulin 4.2 g/dL (2.4-3.5); Glucose 145 mg/dL (70-105); Magnesium 1.5 mg/dL (1.6-2.6); Potassium 3.6 mmol/L (3.5-5.1); Protein, Total 7.6 g/dL (6.0-8.3); Sodium 138 mmol/L (136-145)
[2024-08-23] MEDS: Spironolactone 100 MG TAB PO SCH (09:14)
[2024-08-24 05:27] LABS: #Basophils 0.05 10x3/uL (0.0-0.2); %Basophils 0.5 % (0.0-1.0); %Eosinophils 1.9 % (0.0-10.0); %Lymphocytes 16.5 % (21.0-51.0); %Monocytes 6.6 % (0.0-10.0); %Neutrophils 72.8 % (42.0-75.0); Hematocrit 30.5 % (36.0-47.0); Hemoglobin 9.2 g/dL (12.0-16.0); Mean Corpuscular HGB CONC 30.2 g/dL (32.0-36.0); Mean Corpuscular Hemoglobin 25.9 pg (27.0-31.0); Mean Corpuscular Volume 85.9 fL (78.0-98.0); Mean Platelet Volume 10.3 fL (7.4-10.4); Platelet Count 354 10x3/uL (130-400); RBC Distribution Width 19.1 % (11.5-14.5); Red Blood Cell (RBC) Count 3.55 mill/uL (4.20-5.40)
[2024-08-24 05:57] LABS: ALT (SGPT) 58 U/L (8-55); AST (SGOT) 56 U/L (5-34); Albumin 3.3 g/dL (3.5-5.0); Alkaline Phosphatase 142 U/L (40-110); Anion Gap 14 mmol/L (10-20); BUN (Urea Nitrogen) 38 mg/dL (9.8-20.1); Bilirubin, Total 0.8 mg/dL (0.2-1.2); Calc. Creatinine Clearance 140 mL/min (70-130); Calcium 10.9 mg/dL (7.8-10.44); Carbon Dioxide 25 mmol/L (22-29); Chloride 103 mmol/L (98-107); Estimated GFR 89; Globulin 4.5 g/dL (2.4-3.5); Glucose 136 mg/dL (70-105); Potassium 3.9 mmol/L (3.5-5.1); Protein, Total 7.8 g/dL (6.0-8.3); Sodium 138 mmol/L (136-145)
[2024-08-24 08:01] LABS: Magnesium 1.6 mg/dL (1.6-2.6)
[2024-08-24] MEDS ORDERED: Ipratropium/Albuterol 3 ML NEB NEB PRN (14:23)
[2024-08-25 05:06] LABS: #Basophils 0.06 10x3/uL (0.0-0.2); %Basophils 0.6 % (0.0-1.0); %Eosinophils 2.2 % (0.0-10.0); %Lymphocytes 17.4 % (21.0-51.0); %Monocytes 6.4 % (0.0-10.0); %Neutrophils 71.9 % (42.0-75.0); Hematocrit 32.2 % (36.0-47.0); Hemoglobin 9.8 g/dL (12.0-16.0); Mean Corpuscular HGB CONC 30.4 g/dL (32.0-36.0); Mean Corpuscular Hemoglobin 26.3 pg (27.0-31.0); Mean Corpuscular Volume 86.6 fL (78.0-98.0); Mean Platelet Volume 10.1 fL (7.4-10.4); Platelet Count 341 10x3/uL (130-400); RBC Distribution Width 19.3 % (11.5-14.5); Red Blood Cell (RBC) Count 3.72 mill/uL (4.20-5.40)
[2024-08-25 05:31] LABS: ALT (SGPT) 57 U/L (8-55); AST (SGOT) 47 U/L (5-34); Albumin 3.3 g/dL (3.5-5.0); Alkaline Phosphatase 145 U/L (40-110); Anion Gap 12 mmol/L (10-20); BUN (Urea Nitrogen) 41 mg/dL (9.8-20.1); Bilirubin, Total 0.9 mg/dL (0.2-1.2); Calc. Creatinine Clearance 124 mL/min (70-130); Calcium 10.9 mg/dL (7.8-10.44); Carbon Dioxide 27 mmol/L (22-29); Chloride 102 mmol/L (98-107); Estimated GFR 77; Globulin 4.7 g/dL (2.4-3.5); Glucose 126 mg/dL (70-105); Potassium 3.9 mmol/L (3.5-5.1); Sodium 137 mmol/L (136-145)
[2024-08-25] MEDS: Torsemide 10 MG TAB PO SCH (08:25)
[2024-08-25] MEDS: NIFEdipine XL 30 MG ER.TAB PO SCH (09:11)
[2024-08-25] MEDS: Morphine 4 MG/ML VIAL SLOW IVP PRN (09:57)
[2024-08-26] MEDS: traMADol HCl 50 MG TAB PO PRN (02:30)
[2024-08-26] MEDS: Ketorolac Tromethamine 30 MG (1 mL) VIAL IVP SCH (03:51)
[2024-08-26 05:55] LABS: ALT (SGPT) 60 U/L (8-55); AST (SGOT) 50 U/L (5-34); Albumin 3.5 g/dL (3.5-5.0); Alkaline Phosphatase 148 U/L (40-110); Anion Gap 15 mmol/L (10-20); BUN (Urea Nitrogen) 39 mg/dL (9.8-20.1); Bilirubin, Total 0.8 mg/dL (0.2-1.2); Calc. Creatinine Clearance 123 mL/min (70-130); Calcium 11.2 mg/dL (7.8-10.44); Carbon Dioxide 23 mmol/L (22-29); Chloride 102 mmol/L (98-107); Estimated GFR 78; Globulin 5.1 g/dL (2.4-3.5); Glucose 123 mg/dL (70-105); Potassium 4.2 mmol/L (3.5-5.1); Protein, Total 8.6 g/dL (6.0-8.3); Sodium 136 mmol/L (136-145)
[2024-08-26 06:32] LABS: #Basophils 0.09 10x3/uL (0.0-0.2); %Eosinophils 2.9 % (0.0-10.0); %Lymphocytes 17.1 % (21.0-51.0); %Monocytes 6.3 % (0.0-10.0); %Neutrophils 70.9 % (42.0-75.0); Hemoglobin 10.8 g/dL (12.0-16.0); Mean Corpuscular HGB CONC 29.7 g/dL (32.0-36.0); Mean Corpuscular Hemoglobin 26.7 pg (27.0-31.0); Mean Corpuscular Volume 89.7 fL (78.0-98.0); Mean Platelet Volume 10.6 fL (7.4-10.4); Platelet Count 294 10x3/uL (130-400); RBC Distribution Width 19.5 % (11.5-14.5); Red Blood Cell (RBC) Count 4.09 mill/uL (4.20-5.40)
[2024-08-26 06:39] LABS: Band 3 % (5-11); Eosinophils 3 % (0-10); Large Platelets 1.7 % (0-5); Lymphocytes 17 % (21-51); Macrocytosis SLIGHT = 6-15 cells HPF (0-5); Monocytes 1 % (0-10); Neutrophil 75 % (42-75); Ovalocytes MODERATE= 6-15 cells HPF (0-1); Platelet Adequacy Comment Platelets Normal; Polychromasia MODERATE = 3-4 cells HPF (0-2)
[2024-08-26 08:52] LABS: 24 Hr Creatinine 724.28 mg/24 hr (710-1650); Creatinine, Urine 49.95 mg/dL (47-110)
[2024-08-27 07:04] LABS: #Basophils 0.05 10x3/uL (0.0-0.2); %Basophils 0.5 % (0.0-1.0); %Lymphocytes 18.4 % (21.0-51.0); %Monocytes 5.9 % (0.0-10.0); %Neutrophils 71.2 % (42.0-75.0); Hematocrit 34.6 % (36.0-47.0); Hemoglobin 10.4 g/dL (12.0-16.0); Mean Corpuscular HGB CONC 30.1 g/dL (32.0-36.0); Mean Corpuscular Hemoglobin 26.3 pg (27.0-31.0); Mean Corpuscular Volume 87.4 fL (78.0-98.0); Platelet Count 296 10x3/uL (130-400); Red Blood Cell (RBC) Count 3.96 mill/uL (4.20-5.40)
[2024-08-27 07:23] LABS: ALT (SGPT) 46 U/L (8-55); AST (SGOT) 32 U/L (5-34); Albumin 3.3 g/dL (3.5-5.0); Alkaline Phosphatase 136 U/L (40-110); Anion Gap 13 mmol/L (10-20); BUN (Urea Nitrogen) 40 mg/dL (9.8-20.1); Bilirubin, Total 0.7 mg/dL (0.2-1.2); Calc. Creatinine Clearance 144 mL/min (70-130); Calcium 10.9 mg/dL (7.8-10.44); Carbon Dioxide 27 mmol/L (22-29); Chloride 102 mmol/L (98-107); Estimated GFR 94; Glucose 113 mg/dL (70-105); Potassium 3.9 mmol/L (3.5-5.1); Protein, Total 8.3 g/dL (6.0-8.3); Sodium 138 mmol/L (136-145)
[2024-08-27] MEDS: Morphine 4 MG/ML VIAL SLOW IVP SCH (09:51)
[2024-08-28 05:35] LABS: #Basophils 0.05 10x3/uL (0.0-0.2); %Basophils 0.7 % (0.0-1.0); %Lymphocytes 18.8 % (21.0-51.0); %Monocytes 6.5 % (0.0-10.0); %Neutrophils 69.3 % (42.0-75.0); Hematocrit 32.4 % (36.0-47.0); Hemoglobin 9.8 g/dL (12.0-16.0); Mean Corpuscular HGB CONC 30.2 g/dL (32.0-36.0); Mean Corpuscular Hemoglobin 26.4 pg (27.0-31.0); Mean Corpuscular Volume 87.3 fL (78.0-98.0); Mean Platelet Volume 10.1 fL (7.4-10.4); Platelet Count 249 10x3/uL (130-400); RBC Distribution Width 18.7 % (11.5-14.5); Red Blood Cell (RBC) Count 3.71 mill/uL (4.20-5.40)
[2024-08-28 05:52] LABS: ALT (SGPT) 36 U/L (8-55); AST (SGOT) 26 U/L (5-34); Albumin 3.2 g/dL (3.5-5.0); Alkaline Phosphatase 123 U/L (40-110); Anion Gap 11 mmol/L (10-20); BUN (Urea Nitrogen) 37 mg/dL (9.8-20.1); Bilirubin, Total 0.7 mg/dL (0.2-1.2); Calc. Creatinine Clearance 134 mL/min (70-130); Calcium 10.6 mg/dL (7.8-10.44); Carbon Dioxide 26 mmol/L (22-29); Chloride 101 mmol/L (98-107); Estimated GFR 86; Globulin 4.6 g/dL (2.4-3.5); Glucose 115 mg/dL (70-105); Protein, Total 7.8 g/dL (6.0-8.3); Sodium 134 mmol/L (136-145)
[2024-08-29 05:17] LABS: #Basophils 0.05 10x3/uL (0.0-0.2); %Basophils 0.8 % (0.0-1.0); %Eosinophils 3.5 % (0.0-10.0); %Lymphocytes 19.7 % (21.0-51.0); %Monocytes 7.3 % (0.0-10.0); %Neutrophils 67.9 % (42.0-75.0); Hematocrit 31.1 % (36.0-47.0); Hemoglobin 9.6 g/dL (12.0-16.0); Mean Corpuscular HGB CONC 30.9 g/dL (32.0-36.0); Mean Corpuscular Hemoglobin 26.4 pg (27.0-31.0); Mean Corpuscular Volume 85.4 fL (78.0-98.0); Mean Platelet Volume 9.5 fL (7.4-10.4); Platelet Count 228 10x3/uL (130-400); RBC Distribution Width 18.5 % (11.5-14.5); Red Blood Cell (RBC) Count 3.64 mill/uL (4.20-5.40)
[2024-08-29 05:37] LABS: ALT (SGPT) 31 U/L (8-55); AST (SGOT) 22 U/L (5-34); Albumin 3.1 g/dL (3.5-5.0); Alkaline Phosphatase 116 U/L (40-110); Anion Gap 11 mmol/L (10-20); BUN (Urea Nitrogen) 29 mg/dL (9.8-20.1); Bilirubin, Total 0.7 mg/dL (0.2-1.2); Calc. Creatinine Clearance 159 mL/min (70-130); Calcium 10.8 mg/dL (7.8-10.44); Carbon Dioxide 26 mmol/L (22-29); Chloride 100 mmol/L (98-107); Estimated GFR 104; Globulin 4.5 g/dL (2.4-3.5); Glucose 108 mg/dL (70-105); Potassium 4.3 mmol/L (3.5-5.1); Protein, Total 7.6 g/dL (6.0-8.3); Sodium 133 mmol/L (136-145)
[2024-08-29] MEDS: Torsemide 10 MG TAB PO SCH (13:44)
[2024-08-30 05:15] LABS: #Basophils 0.04 10x3/uL (0.0-0.2); %Basophils 0.8 % (0.0-1.0); %Eosinophils 4.1 % (0.0-10.0); %Lymphocytes 22.8 % (21.0-51.0); %Monocytes 7.6 % (0.0-10.0); %Neutrophils 64.1 % (42.0-75.0); Hematocrit 30.8 % (36.0-47.0); Hemoglobin 9.4 g/dL (12.0-16.0); Mean Corpuscular HGB CONC 30.5 g/dL (32.0-36.0); Mean Corpuscular Hemoglobin 26.6 pg (27.0-31.0); Mean Corpuscular Volume 87.3 fL (78.0-98.0); Mean Platelet Volume 9.7 fL (7.4-10.4); Platelet Count 210 10x3/uL (130-400); RBC Distribution Width 18.7 % (11.5-14.5); Red Blood Cell (RBC) Count 3.53 mill/uL (4.20-5.40)
[2024-08-30 05:16] LABS: ALT (SGPT) 26 U/L (8-55); AST (SGOT) 21 U/L (5-34); Albumin 3.2 g/dL (3.5-5.0); Alkaline Phosphatase 107 U/L (40-110); Anion Gap 10 mmol/L (10-20); BUN (Urea Nitrogen) 26 mg/dL (9.8-20.1); Bilirubin, Total 0.7 mg/dL (0.2-1.2); Calc. Creatinine Clearance 141 mL/min (70-130); Calcium 10.9 mg/dL (7.8-10.44); Carbon Dioxide 27 mmol/L (22-29); Chloride 100 mmol/L (98-107); Estimated GFR 91; Globulin 4.6 g/dL (2.4-3.5); Glucose 120 mg/dL (70-105); Potassium 3.5 mmol/L (3.5-5.1); Protein, Total 7.8 g/dL (6.0-8.3); Sodium 133 mmol/L (136-145)
[2024-08-30] MEDS: Alendronate Sodium 70 mg Tablet PO SCH (08:38)
[2024-08-30] MEDS: Ergocalciferol 1.25 MG(50,000 UNITS) CAP PO SCH (08:43)
[2024-08-30] MEDS: Torsemide 10 MG TAB PO SCH (08:43)
[2024-08-30] MEDS: Zoledronic Acid 4 MG in Sodium Chloride 0.9% 100 ML IVPB SCH (12:05)
[2024-08-31 05:49] LABS: #Basophils 0.03 10x3/uL (0.0-0.2); %Basophils 0.6 % (0.0-1.0); %Eosinophils 4.3 % (0.0-10.0); %Lymphocytes 19.1 % (21.0-51.0); %Monocytes 5.6 % (0.0-10.0); Hematocrit 32.7 % (36.0-47.0); Mean Corpuscular HGB CONC 30.6 g/dL (32.0-36.0); Mean Corpuscular Hemoglobin 26.7 pg (27.0-31.0); Mean Corpuscular Volume 87.4 fL (78.0-98.0); Mean Platelet Volume 10.2 fL (7.4-10.4); Platelet Count 194 10x3/uL (130-400); RBC Distribution Width 18.9 % (11.5-14.5); Red Blood Cell (RBC) Count 3.74 mill/uL (4.20-5.40)
[2024-08-31 05:55] LABS: ALT (SGPT) 25 U/L (8-55); AST (SGOT) 23 U/L (5-34); Albumin 3.2 g/dL (3.5-5.0); Alkaline Phosphatase 108 U/L (40-110); Anion Gap 13 mmol/L (10-20); BUN (Urea Nitrogen) 27 mg/dL (9.8-20.1); Bilirubin, Total 0.7 mg/dL (0.2-1.2); Calc. Creatinine Clearance 135 mL/min (70-130); Calcium 10.6 mg/dL (7.8-10.44); Carbon Dioxide 25 mmol/L (22-29); Chloride 100 mmol/L (98-107); Estimated GFR 87; Globulin 4.7 g/dL (2.4-3.5); Glucose 119 mg/dL (70-105); Potassium 3.6 mmol/L (3.5-5.1); Protein, Total 7.9 g/dL (6.0-8.3); Sodium 134 mmol/L (136-145)
[2024-08-31 13:48] VITALS: BMI 39.9
[2024-09-01 05:55] LABS: #Basophils 0.03 10x3/uL (0.0-0.2); %Basophils 0.5 % (0.0-1.0); %Eosinophils 5.9 % (0.0-10.0); %Lymphocytes 21.9 % (21.0-51.0); %Monocytes 6.4 % (0.0-10.0); %Neutrophils 64.8 % (42.0-75.0); Hematocrit 33.5 % (36.0-47.0); Hemoglobin 9.9 g/dL (12.0-16.0); Mean Corpuscular HGB CONC 29.6 g/dL (32.0-36.0); Mean Corpuscular Hemoglobin 25.7 pg (27.0-31.0); Mean Platelet Volume 9.7 fL (7.4-10.4); Platelet Count 183 10x3/uL (130-400); RBC Distribution Width 18.6 % (11.5-14.5); Red Blood Cell (RBC) Count 3.85 mill/uL (4.20-5.40)
[2024-09-01 06:34] LABS: ALT (SGPT) 24 U/L (8-55); AST (SGOT) 25 U/L (5-34); Albumin 3.1 g/dL (3.5-5.0); Alkaline Phosphatase 103 U/L (40-110); Anion Gap 13 mmol/L (10-20); BUN (Urea Nitrogen) 24 mg/dL (9.8-20.1); Bilirubin, Total 0.8 mg/dL (0.2-1.2); Calc. Creatinine Clearance 154 mL/min (70-130); Calcium 10.1 mg/dL (7.8-10.44); Carbon Dioxide 24 mmol/L (22-29); Chloride 102 mmol/L (98-107); Estimated GFR 102; Globulin 4.6 g/dL (2.4-3.5); Glucose 98 mg/dL (70-105); Potassium 3.9 mmol/L (3.5-5.1); Protein, Total 7.7 g/dL (6.0-8.3); Sodium 135 mmol/L (136-145)
[2024-09-01] MEDS: Ferrous Sulfate 325 MG TAB PO SCH (09:52)
[2024-09-02] MEDS ORDERED: Heparin 5,000 UNITS/ML VIAL ONE ×2 (15:17→20:30)
[2024-09-02] MEDS ORDERED: Multivit, Therapeutic 1 TAB ONE (20:30)
[2024-09-02] MEDS ORDERED: Oxybutynin 5 MG TAB ONE (20:30)
[2024-09-02] MEDS ORDERED: Senokot S 8.6-50 MG TAB ONE (20:30)
[2024-09-03] MEDS ORDERED: Heparin 5,000 UNITS/ML VIAL ONE ×3 (09:38→20:07)
[2024-09-03] MEDS ORDERED: Ferrous Sulfate 325 MG TAB ONE (09:38)
[2024-09-03] MEDS ORDERED: Famotidine 20 MG TAB ONE (09:38)
[2024-09-03] MEDS ORDERED: Senokot S 8.6-50 MG TAB ONE ×2 (09:38→20:07)
[2024-09-03] MEDS ORDERED: traMADol HCl 50 MG TAB ONE (09:38)
[2024-09-03] MEDS ORDERED: Oxybutynin 5 MG TAB ONE ×2 (13:30→20:07)
[2024-09-03] MEDS: oxyCODONE 5 MG TAB ONE ×3 (18:56→23:20)
[2024-09-03] MEDS ORDERED: Multivit, Therapeutic 1 TAB ONE (20:07)
[2024-09-04 06:13] LABS: #Basophils 0.03 10x3/uL (0.0-0.2); %Basophils 0.7 % (0.0-1.0); %Eosinophils 6.8 % (0.0-10.0); %Lymphocytes 27.9 % (21.0-51.0); %Monocytes 5.7 % (0.0-10.0); %Neutrophils 57.8 % (42.0-75.0); Hematocrit 31.2 % (36.0-47.0); Hemoglobin 9.6 g/dL (12.0-16.0); Mean Corpuscular HGB CONC 30.8 g/dL (32.0-36.0); Mean Corpuscular Hemoglobin 26.5 pg (27.0-31.0); Mean Corpuscular Volume 86.2 fL (78.0-98.0); Mean Platelet Volume 9.5 fL (7.4-10.4); Platelet Count 212 10x3/uL (130-400); RBC Distribution Width 18.1 % (11.5-14.5); Red Blood Cell (RBC) Count 3.62 mill/uL (4.20-5.40)
[2024-09-04 06:59] LABS: ALT (SGPT) 26 U/L (8-55); AST (SGOT) 26 U/L (5-34); Albumin 3.1 g/dL (3.5-5.0); Alkaline Phosphatase 101 U/L (40-110); Anion Gap 12 mmol/L (10-20); BUN (Urea Nitrogen) 15 mg/dL (9.8-20.1); Bilirubin, Total 0.6 mg/dL (0.2-1.2); Calc. Creatinine Clearance 148 mL/min (70-130); Calcium 9.9 mg/dL (7.8-10.44); Carbon Dioxide 26 mmol/L (22-29); Chloride 102 mmol/L (98-107); Estimated GFR 97; Globulin 4.8 g/dL (2.4-3.5); Glucose 122 mg/dL (70-105); Potassium 4.1 mmol/L (3.5-5.1); Protein, Total 7.9 g/dL (6.0-8.3); Sodium 136 mmol/L (136-145)
[2024-09-04] MEDS: oxyCODONE 5 MG TAB ONE (14:18)
[2024-09-05] MEDS: Famotidine 20 MG TAB ONE ×2 (00:16→21:10)
[2024-09-05] MEDS: Morphine 4 MG/ML VIAL ONE (01:54)
[2024-09-05 06:28] LABS: #Basophils 0.04 10x3/uL (0.0-0.2); %Basophils 0.7 % (0.0-1.0); %Eosinophils 5.2 % (0.0-10.0); %Lymphocytes 30.2 % (21.0-51.0); %Monocytes 7.4 % (0.0-10.0); %Neutrophils 54.7 % (42.0-75.0); Hematocrit 29.7 % (36.0-47.0); Hemoglobin 9.1 g/dL (12.0-16.0); Mean Corpuscular HGB CONC 30.6 g/dL (32.0-36.0); Mean Corpuscular Hemoglobin 27.1 pg (27.0-31.0); Mean Corpuscular Volume 88.4 fL (78.0-98.0); Mean Platelet Volume 9.4 fL (7.4-10.4); Platelet Count 212 10x3/uL (130-400); RBC Distribution Width 18.4 % (11.5-14.5); Red Blood Cell (RBC) Count 3.36 mill/uL (4.20-5.40)
[2024-09-05 06:47] LABS: ALT (SGPT) 23 U/L (8-55); AST (SGOT) 25 U/L (5-34); Alkaline Phosphatase 105 U/L (40-110); Anion Gap 10 mmol/L (10-20); BUN (Urea Nitrogen) 17 mg/dL (9.8-20.1); Bilirubin, Total 0.6 mg/dL (0.2-1.2); Calc. Creatinine Clearance 135 mL/min (70-130); Calcium 9.8 mg/dL (7.8-10.44); Carbon Dioxide 27 mmol/L (22-29); Chloride 100 mmol/L (98-107); Estimated GFR 87; Globulin 4.5 g/dL (2.4-3.5); Glucose 127 mg/dL (70-105); Potassium 3.7 mmol/L (3.5-5.1); Protein, Total 7.5 g/dL (6.0-8.3); Sodium 133 mmol/L (136-145)
[2024-09-06 09:52] LABS: #Basophils 0.04 10x3/uL (0.0-0.2); %Basophils 0.6 % (0.0-1.0); %Eosinophils 2.8 % (0.0-10.0); %Lymphocytes 19.5 % (21.0-51.0); %Monocytes 5.5 % (0.0-10.0); %Neutrophils 70.2 % (42.0-75.0); Hematocrit 31.4 % (36.0-47.0); Hemoglobin 9.5 g/dL (12.0-16.0); Mean Corpuscular HGB CONC 30.3 g/dL (32.0-36.0); Mean Corpuscular Hemoglobin 26.5 pg (27.0-31.0); Mean Corpuscular Volume 87.5 fL (78.0-98.0); Mean Platelet Volume 9.6 fL (7.4-10.4); Platelet Count 247 10x3/uL (130-400); RBC Distribution Width 18.5 % (11.5-14.5); Red Blood Cell (RBC) Count 3.59 mill/uL (4.20-5.40)
[2024-09-06 10:14] LABS: ALT (SGPT) 26 U/L (8-55); AST (SGOT) 29 U/L (5-34); Albumin 3.2 g/dL (3.5-5.0); Alkaline Phosphatase 103 U/L (40-110); Anion Gap 12 mmol/L (10-20); BUN (Urea Nitrogen) 12 mg/dL (9.8-20.1); Bilirubin, Total 0.7 mg/dL (0.2-1.2); Calc. Creatinine Clearance 148 mL/min (70-130); Calcium 9.9 mg/dL (7.8-10.44); Carbon Dioxide 25 mmol/L (22-29); Chloride 101 mmol/L (98-107); Estimated GFR 97; Glucose 117 mg/dL (70-105); Potassium 4.2 mmol/L (3.5-5.1); Protein, Total 8.2 g/dL (6.0-8.3); Sodium 134 mmol/L (136-145)
[2024-09-06] MEDS: oxyCODONE 5 MG TAB ONE (23:44)
[2024-09-07 04:35] LABS: #Basophils 0.06 10x3/uL (0.0-0.2); %Basophils 0.8 % (0.0-1.0); %Lymphocytes 25.8 % (21.0-51.0); %Monocytes 7.7 % (0.0-10.0); %Neutrophils 61.3 % (42.0-75.0); Hemoglobin 8.5 g/dL (12.0-16.0); Mean Corpuscular HGB CONC 30.4 g/dL (32.0-36.0); Mean Corpuscular Hemoglobin 27.1 pg (27.0-31.0); Mean Corpuscular Volume 89.2 fL (78.0-98.0); Mean Platelet Volume 9.5 fL (7.4-10.4); Platelet Count 217 10x3/uL (130-400); RBC Distribution Width 18.5 % (11.5-14.5); Red Blood Cell (RBC) Count 3.14 mill/uL (4.20-5.40)
[2024-09-07 04:57] LABS: ALT (SGPT) 25 U/L (8-55); AST (SGOT) 27 U/L (5-34); Albumin 2.9 g/dL (3.5-5.0); Alkaline Phosphatase 93 U/L (40-110); Anion Gap 9 mmol/L (10-20); BUN (Urea Nitrogen) 12 mg/dL (9.8-20.1); Bilirubin, Total 0.7 mg/dL (0.2-1.2); Calc. Creatinine Clearance 135 mL/min (70-130); Calcium 9.4 mg/dL (7.8-10.44); Carbon Dioxide 26 mmol/L (22-29); Chloride 101 mmol/L (98-107); Estimated GFR 87; Globulin 4.6 g/dL (2.4-3.5); Glucose 113 mg/dL (70-105); Potassium 4.2 mmol/L (3.5-5.1); Protein, Total 7.5 g/dL (6.0-8.3); Sodium 132 mmol/L (136-145)
[2024-09-07] MEDS: Famotidine 20 MG TAB ONE (10:42)
[2024-09-07] MEDS: oxyCODONE 5 MG TAB ONE (13:32)
[2024-09-07 16:35] VITALS: BP 145/80; TEMP 97.7
== END 2024-09-07 17:15 | disposition home or self-care (01) | DRG 871 ==
LOC: ERS 03:24 → ERHOLD 07:31 → CCU 16:05 → IMCU/EMU 08-17 07:50 → T4-B 08-22 13:56
PROVIDERS: ADMIT Internal Medicine; ATTEND Family Medicine
PROC: 02H633Z Insertion of Infusion Device into Right Atrium, Percutaneous Approach (ICD-10-PCS; principal; 2024-08-09)
PROC: 4A133R1 Monitoring of Arterial Saturation, Peripheral, Percutaneous Approach (ICD-10-PCS; 2024-08-09)
PROC: 3E03329 Introduction of Other Anti-infective into Peripheral Vein, Percutaneous Approach (ICD-10-PCS; 2024-08-09)
PROC: 3E03329 Introduction of Other Anti-infective into Peripheral Vein, Percutaneous Approach (ICD-10-PCS; 2024-08-09)
PROC: 3E033XZ Introduction of Vasopressor into Peripheral Vein, Percutaneous Approach (ICD-10-PCS; 2024-08-09)
PROC: 30233J1 Transfusion of Nonautologous Serum Albumin into Peripheral Vein, Percutaneous Approach (ICD-10-PCS; 2024-08-09)
PROC: 0BH18EZ Insertion of Endotracheal Airway into Trachea, Via Natural or Artificial Opening Endoscopic (ICD-10-PCS; 2024-08-10)
PROC: 5A1945Z Respiratory Ventilation, 24-96 Consecutive Hours (ICD-10-PCS; 2024-08-10)
PROC: 0J9M0ZZ Drainage of Left Upper Leg Subcutaneous Tissue and Fascia, Open Approach (ICD-10-PCS; 2024-08-11)
PROC: 5A09457 Assistance with Respiratory Ventilation, 24-96 Consecutive Hours, Continuous Positive Airway Pressure (ICD-10-PCS; 2024-08-14)
DX: A41.9 Sepsis, unspecified organism (principal); G93.41 Metabolic encephalopathy; J96.01 Acute respiratory failure with hypoxia; R65.21 Severe sepsis with septic shock; N17.9 Acute kidney failure, unspecified; N39.0 Urinary tract infection, site not specified; E87.20 Acidosis, unspecified; E87.1 Hypo-osmolality and hyponatremia; R57.9 Shock, unspecified; M62.82 Rhabdomyolysis; L03.116 Cellulitis of left lower limb; E87.0 Hyperosmolality and hypernatremia; D62 Acute posthemorrhagic anemia; E87.3 Alkalosis; Z88.1 Allergy status to other antibiotic agents; Z98.51 Tubal ligation status; Z86.711 Personal history of pulmonary embolism; Z86.718 Personal history of other venous thrombosis and embolism; Z83.3 Family history of diabetes mellitus; E66.01 Morbid (severe) obesity due to excess calories; Z68.39 Body mass index [BMI] 39.0-39.9, adult; Z79.899 Other long term (current) drug therapy; E87.6 Hypokalemia; E83.42 Hypomagnesemia; E83.52 Hypercalcemia
CPT/HCPCS: 36415; 36416; 36600; 51701; 71045; 71275; 74176; 76705; 80053; 80143; 80179; 80202; 80306; 80307; 81001; 82306; 82340; 82550; 82570; 82652; 82728; 82805; 83036; 83540; 83550; 83605; 83690; 83735; 83880; 83970; 84100; 84156; 84300; 84484; 85025; 85610; 85730; 86038; 86141; 86225; 87040; 87070; 87077; 87081; 87086; 87186; 87205; 87428; 93005; 94002; 94003; 94640; 94660; 96365; 96374; 96375; 97139; A4217; J0692; J0696; J1120; J1644; J1720; J1885; J2060; J2250; J2272; J2704; J2916; J3010; J3370; J3370-JW; J3475; J3480; J3489; J3490; J7030; J7042; J7050; J7070; J7120; J7620; P9047; Q5105; Q9967

== ENCOUNTER 2024-09-07 21:07 | Emergency (ER) | payer OTHER ==
[2024-09-07] MEDS ORDERED: Ketorolac Tromethamine 30 MG (1 mL) VIAL ONE (22:33)
[2024-09-08] MEDS ORDERED: Acetaminophen 500 MG TAB ONE (12:56)
== END 2024-09-08 16:11 | disposition home or self-care (01) ==
LOC: ERS 21:07
DX: S93.402A Sprain of unspecified ligament of left ankle, initial encounter (principal); R53.81 Other malaise; Z73.6 Limitation of activities due to disability; W22.8XXA Striking against or struck by other objects, initial encounter
CPT/HCPCS: J1885